=== PATIENT | male | born 1960 | race African-American/Black ===

== ENCOUNTER 2017-01-08 11:31 | Emergency (ER) | payer MEDICAID ==
[~2017-01-08] VITALS: Ht 193 cm; Wt 123.0 kg
[~2017-01-08 11:31] MED LIST: LEVO100T PO; LISI2.5T47 PO
[2017-01-08] MEDS ORDERED: KETOROLAC 60MG/2ML VIAL IM ONE (15:30)
[2017-01-08 19:35] VITALS: BP 147/102
== END 2017-01-08 20:21 | disposition home or self-care (01) ==
LOC: ER 11:31
DX: M25.531 Pain in right wrist (principal); M54.9 Dorsalgia, unspecified; I10 Essential (primary) hypertension; V49.9XXA Car occupant (driver) (passenger) injured in unspecified traffic accident, initial encounter; Y93.89 Activity, other specified; Y92.89 Other specified places as the place of occurrence of the external cause; Y99.8 Other external cause status
CPT/HCPCS: 72070; 72100; 73110; 73130; 96372; 99284; J1885

== ENCOUNTER 2023-11-23 00:53 | Emergency (ER) | payer MEDICAID ==
[~2023-11-23] VITALS: Ht 193 cm; Wt 109.0 kg
[2023-11-23 01:00] VITALS: O2SAT 97
[2023-11-23] MEDS ORDERED: ACETAMINOPHEN 500MG TABLET PO ONE (01:15)
[2023-11-23 01:45] LABS: HEMATOCRIT 40.9 % (42.0-52.0); HEMOGLOBIN 13.6 g/dL (14.0-18.0); MEAN CORPUSCULAR HEMOGLOBIN 29.4 pg (28.0-32.0); MEAN CORPUSCULAR HGB CONC 33.2 g/dL (31.0-37.0); MEAN CORPUSCULAR VOLUME 88.5 fL (80.0-94.0); PLATELET 174 x1000/uL (130-400); RED BLOOD CELL COUNT 4.62 mill/uL (4.7-6.1); RED CELL DISTRIBUTION WIDTH 13.9 % (11.6-14.6); WHITE BLOOD COUNT 4.7 x1000/uL (4.5-11.0)
[2023-11-23 01:48] LABS: CHLORIDE 105 mEq/L (98-107); POTASSIUM 3.7 mEq/L (3.5-5.1); SODIUM 136 mEq/L (136-145)
[2023-11-23 01:49] LABS: CARBON DIOXIDE 27 mEq/L (21-32)
[2023-11-23 01:54] LABS: CREATININE 1.2 mg/dL (0.6-1.3); GLUCOSE 107 mg/dL (70-105); UREA NITROGEN BLOOD 13 mg/dL (9-23)
[2023-11-23] MEDS: IOHEXOL-300 100 ML BOTTLE ONE (02:48)
[2023-11-23] MEDS: ACETAMINOPHEN 500MG TABLET PO NR (03:25)
[2023-11-23] MEDS ORDERED: METH-653 MT (05:08)
[2023-11-23] MEDS ORDERED: ACET-2708 MT (05:08)
[2023-11-23 05:17] VITALS: BP 168/95; PULSE 55; RESP 13; TEMP 98.2
== END 2023-11-23 05:42 | disposition home or self-care (01) ==
LOC: ER 01:01
DX: R51.9 Headache, unspecified (principal); M54.2 Cervicalgia; M79.604 Pain in right leg; I10 Essential (primary) hypertension; Z98.890 Other specified postprocedural states; V49.9XXA Car occupant (driver) (passenger) injured in unspecified traffic accident, initial encounter; Y93.9 Activity, unspecified; Y92.89 Other specified places as the place of occurrence of the external cause; Y99.8 Other external cause status
CPT/HCPCS: 99285; 70450; 80048; 85027; 36415; 73590; 73610; 71260; 72125; 74177; Q9967